=== PATIENT | female | born 1980 | race Caucasian/White ===

== ENCOUNTER 2017-08-01 01:13 | Emergency (ER) | payer OTHER ==
[~2017-08-01] VITALS: Ht 165.1 cm; Wt 70.0 kg
[2017-08-01 01:28] VITALS: BP 142/86; PULSE 116; RESP 16; TEMP 98.5; O2SAT 96
[2017-08-01] MEDS ORDERED: SODIUM CHLOR 0.9% 1000 ML INJ 1,000 ML IV ONE (02:00)
[2017-08-01] MEDS ORDERED: LORazepam 2 MG/ML VIAL IM ONE (02:15)
--- NOTE | 2017-08-01 02:20 | PD ---
HPI Chief Complaint: Medical Clearance Time Seen by Provider: 01:43 Travel History International Travel<30 days: No Contact w/Intl Traveler<30days: No Traveled to known affect area: No History of Present Illness HPI Patient is a 37-year-old female presenting to emergency department for medical clearance with law enforcement. Patient was found hitting her head on the car windshield, hard enough to cause it to crack. 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 Patient has been drinking alcohol all evening, she also presents with a cut to her left ankle. H&P is limited due to patient's intoxication and being uncooperative. H&P is obtained from law enforcement officers at bedside. PFSH Past Medical History Medical History: Unable to Obtain ?: Unknown Past Surgical History Surgical History: Unable to Obtain Social History Alcohol Use: Yes Tobacco Use: No Substance Use: Yes Allergies-Medications (Allergen,Severity, Reaction): Coded Allergies: No Allergy Information Available (Unverified , 08/01/17) Reported Meds & Prescriptions Reported Meds & Active Scripts Active No Active Prescriptions or Reported Medications Review of Systems ROS Limitations: Intoxication, Uncooperative, Combative Except as stated in HPI: all other systems reviewed are Neg Physical Exam Narrative GENERAL: Well-developed, well-nourished, alert intoxicated appearing female. Presenting in no acute distress. SKIN: Warm and dry. 1.5 cm superficial laceration to the left ankle. HEAD: Atraumatic. Normocephalic. EYES: Pupils equal and round. No scleral icterus. No injection or drainage. ENT: No nasal bleeding or discharge. Mucous membranes pink and moist. NECK: Trachea midline. No JVD. CARDIOVASCULAR: Regular rate and rhythm. RESPIRATORY: No accessory muscle use. Clear to auscultation. Breath sounds equal bilaterally. GASTROINTESTINAL: Abdomen soft, non-tender, nondistended. Hepatic and splenic margins not palpable. MUSCULOSKELETAL: Extremities without clubbing, cyanosis, or edema. No obvious deformities. NEUROLOGICAL: Awake and alert. No obvious cranial nerve deficits. Motor grossly within normal limits. Five out of 5 muscle strength in the arms and legs. Normal speech. PSYCHIATRIC: Combative mood and affect; insight and judgment impaired.. Data Data Last Documented VS Vital Signs Date Time Temp Pulse Resp B/P (MAP) Pulse Ox O2 Delivery O2 Flow Rate FiO2 08/01/17 03:28 103 15 106/71 (83) 100 Room Air 08/01/17 01:[address] Brain W/O Iv Contrast(Rout) (08/01/17 ) Iv Access Insert/Monitor (08/01/17 01:50) Sodium Chlor 0.9% 1000 Ml Inj (Ns 1000 M (08/01/17 02:00) Alcohol (Ethanol) (08/01/17 01:50) Lorazepam Inj (Ativan Inj) (08/01/17 02:15) Labs Laboratory Tests Test 08/01/17 02:25 Ethyl Alcohol Level 236 MG/DL MDM Medical Decision Making Medical Screen Exam Complete: Yes Emergency Medical Condition: Yes Interpretation(s) Vital Signs Date Time Temp Pulse Resp B/P (MAP) Pulse Ox O2 Delivery O2 Flow Rate FiO2 08/01/17 01:28 98.5 116 16 142/86 (104) 96 Differential Diagnosis Concussion versus contusion versus hemorrhage versus laceration versus abrasion versus intoxication versus other Narrative Course Patient is a 37-year-old female presenting for medical clearance. Patient was witnessed banging her head on a car windshield causing it to start worse. Patient is clearly intoxicated, CT scan of the brain is ordered and pending, alcohol level, IV fluids and IV access. Patient has been combative in the emergency department, she is not allowing anyone to question her, she is not forthcoming with information. Patient was given Ativan 2 mg IM 1 dose prior to testing in order to obtain testing. CT scan of the brain is negative for acute abnormality Patient's blood alcohol level is 236. She had been given a total of 2 L of IV fluid at the emergency department. Patient has been resting comfortably and is calm at this time. Patient is medically cleared to be discharged to law enforcement. Laceration to left ankle was repaired with Steri-Strips after the wound was thoroughly cleaned. Patient will be allowed to sleep it off in the emergency department, she will be discharged to law enforcement when she can demonstrate safe ambulation. Diagnosis Primary Impression: Head injury Qualified Codes: S09.90XA - Unspecified injury of head, initial encounter Additional Impressions: Alcohol intoxication Qualified Codes: F10.920 - Alcohol use, unspecified with intoxication, uncomplicated Laceration of ankle Qualified Codes: S91.012A - Laceration without foreign body, left ankle, initial encounter Referrals: Primary Care Physician Patient Instructions: Alcohol Intoxication (ED), General Instructions, Head Injury (ED), Laceration Without Closure (ED) Additional Instructions: Keep ankle wound clean and dry, cover with nonocclusive dressing or Band-Aid Avoid excessive intake of alcohol Drink more water Return to emergency department for any new or worsening symptoms Follow-up with your primary doctor at the [facility] Med/Other Pt SpecificInfo: No Change to Meds Scripts No Active Prescriptions or Reported Meds Disposition: [address] LAW ENFORCEMNT Condition: Stable Kasandra Rome August 01, 2017 02:20
[2017-08-01 03:28] VITALS: BP 106/71; PULSE 103; RESP 15; O2SAT 100
--- NOTE | 2017-08-01 04:30 | RADRPT ---
EXAM DATE: 08/01/2017 4:09 AM EDT AGE/SEX: 37 years / Female INDICATIONS: Altered mental status. CLINICAL DATA: This is the patient's initial encounter. Patient reports that signs and symptoms have been present for 1 day and indicates a pain score of Nonresponsive. MEDICAL/SURGICAL HISTORY: None. Alcohol and substance abuse. None. RADIATION DOSE: 35.87 CTDI (mGy) COMPARISON: No prior [facility] exams available for comparison. TECHNIQUE: CT of the head without contrast. Using automated exposure control and adjustment of the mA and/or kV according to patient size, radiation dose was kept as low as reasonably achievable to ob tain optimal diagnostic quality images. FINDINGS: Motion degraded study. Cerebrum: The ventricles are normal for age. No evidence of midline shift, mass lesion, hemorrhage or acute infarction. No extraaxial fluid collections are seen. Posterior Fossa: The cerebellum and brainstem are intact. The 4th ventricle is midline. The cerebe llopontine angle is unremarkable. Extracranial: The visualized portion of the orbits is intact. Skull: The calvaria is intact. No evidence of skull fracture. CONCLUSION: Motion degraded study without a perceptible acute abnormality. Electronically signed by: Lance Sim MD 08/01/2017 4:28 AM EDT
[2017-08-01 08:38] VITALS: BP 114/67
== END 2017-08-01 08:40 ==
LOC: NEPD 01:13
DX: S09.90XA Unspecified injury of head, initial encounter (principal); S91.012A Laceration without foreign body, left ankle, initial encounter; F10.920 Alcohol use, unspecified with intoxication, uncomplicated; W22.8XXA Striking against or struck by other objects, initial encounter; Y90.7 Blood alcohol level of 200-239 mg/100 ml
CPT/HCPCS: 70450; 80307; 96372; 99283; J2060; J7030